=== PATIENT | female | born 1980 | race Caucasian/White ===

== ENCOUNTER 2024-05-07 10:07 | Emergency (ER) | payer BC, SELFPAY ==
[2024-05-07 10:09] VITALS: BP 105/49
[2024-05-07 11:26] VITALS: BMI 23.2
[2024-05-07 12:00] LABS: HCG, Urine Qualitative Screen Negative
--- NOTE | 2024-05-07 12:00 | ED.GENMED ---
Addendum entered and electronically signed by Mayra Correa MD 05/07/24 13:53:
Patient tells me that she recently moved from [place] and has no PCP. I did send a Parrish text to PCP request line to help facilitate patient finding a PCP
Original Note:
History of Present Illness
General
Chief Complaint: Headache
Source: patient
Exam Limitations: none
Time Seen by Provider: 05/07/24 11:27
Nursing documentation reviewed up to this point in time: agreed with
History of Present Illness
History of Present Illness:
The patient is a pleasant 43-year-old female with a past medical history of migraine headaches who reports that this past Thursday, which was 4 days ago, she developed a headache. Patient reports that the headache lasted several hours went away
completely but then she experienced another headache the following day. Patient reports that the second headache also lasted several hours and went away. However, starting yesterday, she has had an ongoing headache. Patient reports that Motrin
does not seem to make the headache better. She denies vision changes, nausea and vomiting. Patient reports she felt flushed and warm yesterday and thought she might of had a fever but did not have a thermometer to check her temperature. Patient
denies sinus congestion, cough and sore throat. She denies rash. Patient did not test herself for COVID at home. Patient reports that the headaches have been all over her head on both sides this past week but today it seems to be concentrated in
her right temporal area. Patient reports that currently her headache is nearly gone but occasionally gets stabbing pain on the right side of her head. Patient also states that when she woke up in the middle the night last night she noticed
tingling in her left arm but was able to go back to sleep and has not experienced this since. Patient denies any weakness anywhere. She denies any symptoms in her face or legs. Patient denies neck pain.
Past History
Past History
ED Past Medical History: Other (Migraine headache)
ED Past Surgical History: Other
Social History
Tobacco: Non-smoker
Alcohol: None
Drug: None
Personal:
Living: with family
Employment: Other
Family History
Family History: Other
Review of Systems
Review of Systems
Allergies reviewed?: Yes
All Other Systems: ROS reviewed and negative except as documented in HPI and ROS
Constitutional: Reports no symptoms
EENT: Reports no symptoms
Respiratory: Reports no symptoms
Cardiac: Reports no symptoms
ABD/GI: Reports no symptoms
: Reports no symptoms
Musculoskeletal: Reports no symptoms
Skin: Reports no symptoms
Neurological: Reports headache and other (Tingling in left arm)
Endocrine: Reports no symptoms
Hematologic/Lymphatic: Reports no symptoms
Psychiatric: Reports no symptoms
Phy Exam
Physical Exam
Physical Exam:
Physical Exam
General: no apparent distress, not acutely ill, well and comfortable appearing. Smiling and conversational, nontender temporal scalp area bilaterally.
Neck: supple. no meningeal signs. normal psoterior pharynx
Heart: s1/s2 regular rate and rhythm, no murmur. equal radial pulses.
Lungs: no acute respiratory distress. clear bilaterally
Abdomen: normal bowel sounds. not tender. no CVAT
Neuro: alert and orientedx3. no focal neurological deficits. EOMI. 5 out of 5 strength in all extremities. Equal sensation bilaterally in face, arms and legs. Steady gait. Visual zaldivar intact
Skin: no rash
Psychiatric: well kept. interactive and cooperative
Extremities: no edema. no calf tenderness. negative homans. good distal pulses
Course
Orders/Labs/Results
Orders:
Orders
05/07/24 11:40
CT Head W/o Iv Contrast Urgent
Comment:
Reason For Exam: acute headache for 4 days
Test Result ONCE
05/07/24 11:43
COVID-19 Antigen Urgent
Source: Nasal Swab
, Urine Qualitative Screen [HCG, Urine Qualitative Screen] Urgent
Date Specimen was Collected: 05/07/24
Time Specimen was Collected: 11:41
Vital Signs
Initial and Last Documented VS:
Initial Vital Signs
Temp Pulse Resp BP Pulse Ox
97.8 F 74 16 105/49 95
05/07/24 10:09 05/07/24 10:09 05/07/24 10:09 05/07/24 10:09 05/07/24 10:09
Last Documented Vital Signs
Temp Pulse Resp BP Pulse Ox
97.8 F 75 18 103/45 99
05/07/24 10:09 05/07/24 13:42 05/07/24 13:42 05/07/24 13:42 05/07/24 13:42
MDM/Problems Addressed
Differential Diagnosis Includes:
Tension headache, subarachnoid hemorrhage, intracranial mass
MDM/Problems Addressed:
Patient presents with acute headache
Chronic conditions affecting care:
History of migraines
Acute Exacerbation and/or Progression of Chronic Illness:
Patient may have exacerbation of migraine headache
*Radiology
Radiology exam reviewed: radiology read reviewed
*Pulse Oximetry
Patient hypoxic: no
*EKG
Interpreted by ED Provider?: NA
*Cafeteria Associate Interpretation
Rate: Cafeteria Associate- N/A
*Critical Care Note
Total Time (30-74mins, 75-104mins- exclusive of procedures): Not Applicable
Data Reviewed
Source: patient
Patient Management
Social determinants of health affecting care: Living situation and Strong social support
Escalation/DeEscalation of care consider admission/obs:
Patient continues to look well and comfortable. She has a normal neurological exam and there is no sign of stroke. There is no meningismus or toxicity to suggest meningitis. Patient has no severe facial or neck pain or visual changes to suggest
dissection.
ED Attending Note
-
Portions of this chart may have been created with voice recognition software.� Occasional wrong word or��sound alike� substitutions may have occurred due to the inherent limitations of voice recognition software.
Discharge Plan
Departure
Patient Disposition: Home (Routine Discharge)
Date of Disposition: 05/07/24
Time of Disposition: 13:33
Patient with high blood pressure during this ER visit?: No
Condition: Good
Covid-19: Not Applicable
Discharge Problem:
Headache
Instructions: Headache, Adult (DC)
Prescriptions:
New
hplveitzbo-lzuxsdulbszge-ixea [Fioricet] 50-300-40 mg capsule
1 cap PO TID PRN (Reason: Pain) Qty: 10 0RF
Referrals:
NONE,* [Family Provider] -
Activity Restrictions/Additional Instructions:
We sent a message to the hospital so that someone will be contacting you within 1 week to help you find a primary care physician
The headache medicine that we prescribed, Fioricet, contains Tylenol so please do not take any Tylenol within 6 hours of taking the Fioricet. You can safely take an NSAID, such as Motrin, with the Fioricet
Interventions
Interventions:
*Risk Screen - Suicide Last Done: 05/07/24 10:13
*General Assessment Last Done: 05/07/24 11:26
*Neglect/Abuse Screening Last Done: 05/07/24 10:13
ED- Fall Risk Assessment Last Done: 05/07/24 11:26
*ED COVID-19 Vaccine History Last Done: 05/07/24 11:26
*Nursing Disposition Last Done: 05/07/24 13:42
ED- Neurological Assessment Last Done: 05/07/24 11:26
Discharge Date and Time
Discharge Date/Time: 05/07/24 13:40
Print Language: AZERI
[2024-05-07 12:17] LABS: COVID-19 Antigen Negative (Negative)
[2024-05-07 13:42] VITALS: BP 103/45
== END 2024-05-07 13:40 | disposition home or self-care (01) ==
LOC: EMR 10:07
PROVIDERS: EMERGENCY PHYSICIAN Emergency Medicine
DX: R51.9 Headache, unspecified (principal)
CPT/HCPCS: 99284; 70450; 81025; 87811